=== PATIENT | male | born 1950 | race Caucasian/White ===

== ENCOUNTER → 2019-06-29 | Outpatient (CLI) | payer MEDICARE | END | disposition home or self-care (01) | LOC: LAB 12:15 | PROVIDERS: ATTEND Nurse Practitioner Family | DX: C91.00 Acute lymphoblastic leukemia not having achieved remission (principal); R00.9 Unspecified abnormalities of heart beat | CPT/HCPCS: 36415; 87040 ==

== ENCOUNTER 2019-12-17 08:00 | Outpatient (CLI) | payer MEDICARE | END 2019-12-17 23:59 | disposition home or self-care (01) | LOC: CFH 08:00 | PROVIDERS: ATTEND Internal Medicine Cardiovascular Disease | DX: Z13.6 Encounter for screening for cardiovascular disorders (principal); E78.5 Hyperlipidemia, unspecified; I51.7 Cardiomegaly | CPT/HCPCS: 75571 ==

== ENCOUNTER → 2019-12-17 | Outpatient (CLI) | payer MEDICARE | END | disposition home or self-care (01) | LOC: CVU 12:38 | PROVIDERS: ATTEND Internal Medicine Cardiovascular Disease | DX: I35.1 Nonrheumatic aortic (valve) insufficiency (principal); R09.89 Other specified symptoms and signs involving the circulatory and respiratory systems; I10 Essential (primary) hypertension | CPT/HCPCS: 93306; 93880 ==

== ENCOUNTER → 2020-04-14 | Outpatient (CLI) | payer MEDICARE ==
[~2020-04-14] MED LIST: REGADENOSON 0.4 MG/5 ML SYRINGE ONE
== END | disposition home or self-care (01) ==
LOC: CFH 08:21
PROVIDERS: ATTEND Registered Nurse
DX: I25.9 Chronic ischemic heart disease, unspecified (principal); R94.39 Abnormal result of other cardiovascular function study; R07.89 Other chest pain
CPT/HCPCS: 78452; 93017; A9502; J2785

== ENCOUNTER 2020-05-12 09:53 | Observation (INO) | payer MEDICARE ==
[~2020-05-12] VITALS: Ht 182.9 cm; Wt 90.8 kg
[2020-05-12] MEDS ORDERED: SODIUM CHLORIDE 0.9% 1,000 ML IV SCH ×2 (11:00→13:30)
[2020-05-12 11:23] LABS: BASOPHILS % (AUTO) 1 % (0-1); EOSINOPHILS % (AUTO) 1 % (1-7); LYMPHOCYTES % (AUTO) 19 % (22-44); MEAN CORPUSCULAR HEMOGLOBIN 30.3 pg (27.5-34.5); MEAN CORPUSCULAR HGB CONC 34.3 g/dL (33.2-36.2); MEAN PLATELET VOLUME 7.8 fL (7.4-10.4); MONOCYTES % (AUTO) 8 % (2-9); NEUTROPHILS % (AUTO) 71 % (42-75); PLATELET COUNT 319 x10^3/uL (130-400); RED BLOOD COUNT 4.88 x10^6/uL (4.38-5.82); RED CELL DISTRIBUTION WIDTH 15.1 % (9.4-14.8)
[2020-05-12 11:25] LABS: MD NO
[2020-05-12 11:33] LABS: ALANINE AMINOTRANSFERASE 34 U/L (12-78); ALBUMIN 4.2 g/dL (3.4-5.0); ANION GAP 4 mmol/L (5-15); CHLORIDE 110 mmol/L (98-107); CREATININE 1.16 mg/dL (0.7-1.3); TRIGLYCERIDES 145 mg/dL (50-200)
[2020-05-12 11:35] LABS: ALKALINE PHOSPHATASE 81 U/L (45-117); BILIRUBIN,TOTAL 0.4 mg/dL (0.2-1.0); TOTAL PROTEIN 7.1 g/dL (6.4-8.2)
[2020-05-12] MEDS ORDERED: MIDAZOLAM 1 MG/ML, 2ML ONE ×2 (11:37→12:16)
[2020-05-12] MEDS ORDERED: FENTANYL PF 100 MCG/2ML ONE (11:37)
[2020-05-12] MEDS ORDERED: HEPARIN 1,000 UNITS/ML, 10ML ONE (11:38)
[2020-05-12] MEDS ORDERED: VERAPAMIL 2.5 MG/ML, 2ML ONE (11:38)
[2020-05-12] MEDS ORDERED: LIDOCAINE-MPF 1%, 5ML ONE (11:38)
[2020-05-12 11:46] VITALS: BP 156/74
[2020-05-12] MEDS ORDERED: PONA15TA3 PO (11:46)
[2020-05-12] MEDS ORDERED: SENEKOT PO (11:46)
[2020-05-12] MEDS ORDERED: FLUO20CA19 PO (11:46)
[2020-05-12] MEDS ORDERED: VALS80TA30 PO (11:46)
[2020-05-12] MEDS ORDERED: VALA500T8 PO (11:46)
[2020-05-12] MEDS ORDERED: AMLO-211 PO (11:46)
[2020-05-12] MEDS ORDERED: ROSU10TA26 PO (11:46)
[2020-05-12] MEDS ORDERED: ASPI-191 PO (11:46)
[2020-05-12] MEDS ORDERED: BIVALIRUDIN 250 MG ONE ×2 (12:33→13:38)
[2020-05-12] MEDS ORDERED: NITROGLYCERIN 30 MCG/ML, 20ML VIAL ONE (12:52)
[2020-05-12] MEDS ORDERED: TICAGRELOR 90 MG TABLET ONE (13:07)
[2020-05-12] MEDS ORDERED: PRASUGREL 10 MG TABLET ONE (13:18)
[2020-05-12] MEDS ORDERED: ACETAMINOPHEN 325 MG TABLET PO PRN (13:30)
[2020-05-12] MEDS ORDERED: BIVALIRUDIN 250 MG in SODIUM CHLORIDE 0.9% 50 ML IV SCH ×2 (13:30→17:30)
[2020-05-12] MEDS ORDERED: ZOLPIDEM 5MG TABLET PO PRN (13:30)
[2020-05-12 14:03] VITALS: BP 126/67
[2020-05-12 19:34] VITALS: BP 125/69
[2020-05-13 00:14] VITALS: BP 128/71
[2020-05-13 05:12] LABS: ANION GAP 6 mmol/L (5-15); CALCIUM 8.6 mg/dL (8.5-10.1); CHLORIDE 110 mmol/L (98-107); CREATININE 0.97 mg/dL (0.7-1.3)
[2020-05-13 06:42] VITALS: BP 134/74
[2020-05-13 08:00] VITALS: BP 137/70
[2020-05-13] MEDS ORDERED: PRAS10TA4 PO (08:24)
[2020-05-13] MEDS ORDERED: ASPIRIN 81 MG TABLET EC PO SCH ×2 (09:00)
[2020-05-13] MEDS ORDERED: ATORVASTATIN 40 MG TABLET PO SCH (09:00)
[2020-05-13] MEDS ORDERED: AMLODIPINE 10 MG TAB PO SCH (09:00)
[2020-05-13] MEDS ORDERED: PONATINIB HCL HOMEMEDPO SCH (09:00)
[2020-05-13] MEDS ORDERED: VALSARTAN 80 MG TABLET PO SCH (09:00)
[2020-05-13] MEDS ORDERED: PRASUGREL 10 MG TABLET PO SCH (09:00)
[2020-05-13] MEDS ORDERED: FLUOXETINE HCL 20 MG CAPSULE PO SCH (09:00)
[2020-05-13] MEDS ORDERED: VALACYCLOVIR 500MG TABLET PO SCH (09:00)
== END 2020-05-13 10:07 | disposition home or self-care (01) ==
LOC: CACL 09:53 → ORIP 13:22 → 5SO 14:17 → DCLOUNGE 05-13 10:01
PROVIDERS: ADMIT Internal Medicine Cardiovascular Disease; ATTEND Internal Medicine Cardiovascular Disease
DX: I25.118 Atherosclerotic heart disease of native coronary artery with other forms of angina pectoris (principal); R94.30 Abnormal result of cardiovascular function study, unspecified; I10 Essential (primary) hypertension; E78.00 Pure hypercholesterolemia, unspecified; F32.9 Major depressive disorder, single episode, unspecified; Z79.82 Long term (current) use of aspirin; Z79.899 Other long term (current) drug therapy
CPT/HCPCS: 36415; 80048; 80053; 82150; 83690; 84478; 84550; 85025; 93005; 93458; 96361; 96365; 96366; 99156; 99157; C1725; C1769; C1874; C1887; C1894; C9600; G0378; J0583; J1644; J2250; J3010; J7030; Q9967